=== PATIENT | female | born 1980 | race Two or more races ===

== ENCOUNTER 2023-10-06 11:44 | Emergency (ER) | payer OTHER, SELFPAY ==
--- NOTE | ~2023-10-06 | XR_ITS ---
EXAMINATION: XR HIP, RIGHT WITH AP PELVIS CLINICAL INFORMATION: Status post right posterior hip/pelvic pain. As per patient increasing pain since a fall 2 years ago. COMPARISON: None available. TECHNIQUE: Two views of the right hip and AP view of the pelvis. FINDINGS: Normal osseous mineralization. Bilateral hip joints are intact. Hip joint spaces are well preserved. There is no evidence of acute fracture or dislocation. Sacroiliac joints are grossly unremarkable. Symphysis pubis is intact. A 1.3 cm length amorphous radiodensity is noted at the superior aspect of the right greater trochanter, likely representing soft tissue calcification/ossification. Projecting over the upper to mid sacrum, in the midline and to the left, note is made of a somewhat T-shaped density with appearance similar to that of intrauterine device, which is transversely oriented with the prongs facing towards the left. There are 2 calcified or sclerotic lesions noted in this region, with the larger one on the left measuring 5 cm in length and the smaller one on the right measuring 2.3 cm. XR/XR hip RT w PEL1V IMPRESSION: No evidence of acute fracture or dislocation in the pelvis and right hip. An amorphous radiodensity on the superior aspect of the right greater trochanter, likely representing soft tissue calcification/ossification. Differential possibilities may include calcific tendinitis/bursitis, heterotopic ossification, myositis ossificans etc. Note is made of spina bifida in the lower sacral region. Findings associated with sacrum/sacral region are of unclear etiology. Differential possibility includes sclerotic/developmental congenital sacral lesions, calcified uterine fibroids with T-shaped intrauterine device. There are no pertinent prior studies available for comparison. Recommend clinical correlation. Findings were discussed in detail with Dr. Hall on 10/06/2023 at 3:33 PM.
[2023-10-06 12:11] VITALS: BP 135/83; PULSE 74; RESP 16; TEMP 36.9; O2SAT 99; BMI 33.1
--- NOTE | 2023-10-06 12:11 | ED.GENADULT ---
HPI - General Adult General Chief complaint: General Medical Stated complaint: l side pain Time Seen by Provider: 10/06/23 13:27 Source: patient Mode of arrival: ambulatory Limitations: no limitations History of Present Illness HPI narrative: 42-year-old female with no significant past medical history who presents emergency department with complaints of right buttock /lateral hip pain for the past several days. She states that while ambulating the pain radiates from the buttock into the foot. She denies any known trauma or overuse injury, erythema, ecchymosis, swelling, or history of IV drug use. She states she has been using [id number] patches and prescription strength ibuprofen with moderate relief in symptoms. She denies any fevers or chills reports that she is change in range of motion gait secondary to pain. She reports the pain is exacerbated with movements. She denies any urinary hesitancy, urinary or fecal incontinence, saddle anesthesia, new paresthesias pertinent positives and negatives discussed in HPI Related Data Previous Rx's Medication Instructions Recorded ibuprofen 600 mg tablet 600 mg PO Q6H PRN pain #30 tabs 10/06/23 lidocaine 4 % topical patch 1 patch topical DAILY PRN pain #15 10/06/23 ea Allergies Allergy/AdvReac Type Severity Reaction Status Date / Time No Known Allergies Allergy Verified 10/06/23 12:10 Review of Systems Review of Systems: Yes all other systems are reviewed and are negative [facility] Social History Social History Advance Directives: No Advance Directives Information Provided: No Physical Exam ED Vital Signs: Vital Signs - 24 hr 10/06/23 12:11 10/06/23 15:55 10/06/23 16:13 Temperature 98.4 F 98.3 F 98.3 F Pulse Rate 74 76 76 Respiratory Rate 16 18 18 Blood Pressure 135/83 134/76 134/76 Pulse Oximetry 99 99 99 Oxygen Delivery Method Room Air Room Air Room Air BMI result Body Mass Index 33.1 Nursing notes and vital signs reviewed. GENERAL APPEARANCE: A&0 x 4, generally well appearing, no acute distress HENMT: Normal to inspection, atraumatic, face symmetrical. Normal external ears, nose, and oropharynx clear. EYE: PERRLA, EOM intact, structures appear normal NECK: Supple without stiffness or restricted ROM. HEART: Normal rate and regular rhythm, normal S1/S2, no M/R/G LUNGS: LS CTA, moving air well. Able to speak in complete sentences. No crackles, wheezes, or rhonchi auscultated BACK: No CVAT, no obvious deformity EXTREMITIES: Moving all extremities without difficulty. Normal capillary refill. Tenderness to palpation right lateral hip /buttock NEUROLOGICAL: Alert and oriented, moving all 4 extremities with equal strength. CN not formally tested but appearing grossly intact. Observed to ambulate with normal gait. Cognition normal SKIN: Warm and dry without any lesions, rash, or visible sores Course Course Course Narrative: This is an RME: Additional HPI, ROS, PE not included below will be deferred to primary provider. 42 yo f presents w/ R sided glute pain into rle no trauma, or blunt force to area. Patient reports 6/10 pain, walking initially makes it better but with time makes it worse. Exacerbated by certain movements. Denies numbness, tingling, saddle anesthesias, urinary/bowel incontinence or retention. Ambulatory into triage Medications Administered Discontinued Medications Generic Name Dose Route Start Last Admin Trade Name Freq PRN Reason Stop Dose Admin Ketorolac Tromethamine 15 mg 10/06/23 13:55 10/06/23 14:15 Ketorolac Tromethamine 15 Mg/Ml Vial IM 10/06/23 13:56 15 mg ONCE ONE Administration Lidocaine 1 patch 10/06/23 13:55 10/06/23 14:14 Lidocaine 4 % Patch Adh..Patch TRANSDERMA 10/06/23 13:56 1 patch ONCE ONE Administration Protocol Medical Decision Making Medical Decision Making MDM Narrative: Old records reviewed for previous imaging, lab studies, ECGs, and notes. Patient was assessed the emergency department with no acute distress or toxicity noted. lidocaine patch applied and IM Toradol given for management of pain. X-ray right hip/ pelvis completed showing no evidence of acute injury. radiologist remarks on concerns for chronic spinal changes and calcifications consistent with potential bursitis. Patient is safe for discharge at this time with plan for [id number] Tylenol and/or NSAID such as ibuprofen or naproxen for fever/discomfort with dosing as per packaging. HPI, PE, diagnostics, and plan discussed with patient and family with no unanswered questions at this time. Strict return precautions given to return to the emergency department with new, worsening, or concerning emergent symptoms. Recommended to follow-up with there primary care provider in 24-48 hours for further treatment and management. Differential Diagnosis Differential Diagnoses: The differential diagnosis associated with the presentation includes but not limited to strain, sprain, fracture, dislocation, Bursitis, tendonitis, radiculopathy, stenosis, contusion, abscess, cellulitis, sepsis, malignancy Lab Data Labs: Lab Results 10/06/23 Range/Units 13:48 Urine Color Yellow Urine Appearance Clear Urine pH 8.0 (5.0-9.0) Ur Specific [place] 1.010 (1.005-1.025) Urine Protein Negative (Neg-Trace) mg/dL Urine Glucose (UA) Negative (Negative) mg/dL Urine Ketones Trace (Negative) mg/dL Urine Blood Negative (Negative) Urine Nitrite Negative (Negative) Ur Leukocyte Esterase Negative (Negative) Urine Test NEGATIVE (NEGATIVE) Discharge Plan Discharge Clinical Impression: Bursitis of hip, right Patient Disposition: Home, Self-Care Instructions: Hip Bursitis (ED), Arthralgia (ED) Prescriptions: New lidocaine 4 % adhesive patch,medicated 1 patch topical DAILY PRN (Reason: pain) Qty: 15 0RF ibuprofen 600 mg tablet 600 mg PO Q6H PRN (Reason: pain) Qty: 30 0RF [place]: [facility] [place] [facility] [place] [facility] [place] [facility] [place]Provider Group] [facility] [place] [facility] [Provider Group] [facility] [place] [facility] [Provider Group] [facility] [place] Orthopedic Surgeons [Provider Group] Stand Alone Forms: Work/School Release Interventions: ED Discharge Assessment Last Done: 10/06/23 16:13 Discharge Date/Time: 10/06/23 16:16 Print Language: Yemeni
--- NOTE | 2023-10-06 13:56 | ED_ITS ---
<Statement entered by Madai Wall NP - 10/06/23 18:59> duplicate HPI - General Adult General Chief complaint: General Medical Stated complaint: l side pain Time Seen by Provider: 10/06/23 13:27 Related Data Previous Rx's Medication Instructions Recorded ibuprofen 600 mg tablet 600 mg PO Q6H PRN pain #30 tabs 10/06/23 lidocaine 4 % topical patch 1 patch topical DAILY PRN pain #15 10/06/23 ea Allergies Allergy/AdvReac Type Severity Reaction Status Date / Time No Known Allergies Allergy Verified 10/06/23 12:10 [facility] Social History Social History Advance Directives: No Advance Directives Information Provided: No Physical Exam ED Vital Signs: Vital Signs - 24 hr 10/06/23 12:11 10/06/23 15:55 10/06/23 16:13 Temperature 98.4 F 98.3 F 98.3 F Pulse Rate 74 76 76 Respiratory Rate 16 18 18 Blood Pressure 135/83 134/76 134/76 Pulse Oximetry 99 99 99 Oxygen Delivery Method Room Air Room Air Room Air BMI result Body Mass Index 33.1 Medications Administered Discontinued Medications Generic Name Dose Route Start Last Admin Trade Name Freq PRN Reason Stop Dose Admin Ketorolac Tromethamine 15 mg 10/06/23 13:55 10/06/23 14:15 Ketorolac Tromethamine 15 Mg/Ml Vial IM 10/06/23 13:56 15 mg ONCE ONE Administration Lidocaine 1 patch 10/06/23 13:55 10/06/23 14:14 Lidocaine 4 % Patch Adh..Patch TRANSDERMA 10/06/23 13:56 1 patch ONCE ONE Administration Protocol Medical Decision Making Lab Data Labs: Lab Results 10/06/23 Range/Units 13:48 Urine Color Yellow Urine Appearance Clear Urine pH 8.0 (5.0-9.0) Ur Specific [place] 1.010 (1.005-1.025) Urine Protein Negative (Neg-Trace) mg/dL Urine Glucose (UA) Negative (Negative) mg/dL Urine Ketones Trace (Negative) mg/dL Urine Blood Negative (Negative) Urine Nitrite Negative (Negative) Ur Leukocyte Esterase Negative (Negative) Urine Test NEGATIVE (NEGATIVE) Discharge Plan Discharge Clinical Impression: Bursitis of hip, right Patient Disposition: Home, Self-Care Instructions: Hip Bursitis (ED), Arthralgia (ED) Prescriptions: New lidocaine 4 % adhesive patch,medicated 1 patch topical DAILY PRN (Reason: pain) Qty: 15 0RF ibuprofen 600 mg tablet 600 mg PO Q6H PRN (Reason: pain) Qty: 30 0RF Ref[place]: [facility] [place]] [facility] [place] [facility] [Provider Group] [facility] [place] [facility] [Provider Group] [facility] [place] [facility] [Provider Group] [facility] [place] Orthopedic Surgeons [Provider Group] Stand Alone Forms: Work/School Release Interventions: ED Discharge Assessment Last Done: 10/06/23 16:13 Discharge Date/Time: 10/06/23 16:16 Print Language: Andorran
[2023-10-06 13:59] LABS: Appearance Urine Clear; Color Urine Yellow; Glucose Urine UA Negative (Negative); Leukocyte Esterase Urine Negative (Negative); Nitrite Urine Negative (Negative); Urine Blood Negative (Negative); Urine Ketones Trace mg/dL (Negative); Urine Protein Negative (Neg-Trace)
[2023-10-06 14:01] LABS: UPreg QC Valid YES; Urine Pregnancy NEGATIVE (NEGATIVE)
[2023-10-06] MEDS: Lidocaine 4 % Patch ADH..PATCH 1 PATCH TRANSDERMA (14:14)
[2023-10-06] MEDS: Ketorolac Tromethamine 15 MG/ML VIAL IM (14:15)
[2023-10-06 15:55] VITALS: BP 134/76; PULSE 76; RESP 18; TEMP 36.8; O2SAT 99
[2023-10-06 16:13] VITALS: BP 134/76; PULSE 76; RESP 18; TEMP 36.8; O2SAT 99
== END 2023-10-06 16:16 | disposition home or self-care (01) ==
PROVIDERS: Physician Assistant; Emergency Provider Student in an Organized Health Care Education/Training Program
DX: M70.71 Other bursitis of hip, right hip (principal)
CPT/HCPCS: 73502; 81003; 81025; 96372; 99284; J1885

== ENCOUNTER 2025-04-26 13:58 | Emergency (ER) | payer OTHER, SELFPAY ==
--- NOTE | 2025-04-26 14:31 | ED_ITS ---
HPI - General Adult General Chief complaint: General Medical Stated complaint: nausea, dizzy Time Seen by Provider: 04/26/25 20:07 Source: patient Mode of arrival: ambulatory Limitations: no limitations History of Present Illness ED Provider: Robbie TELLEZ HPI narrative: Patient is a 44-year-old female presenting to the ED for evaluation of nausea and dizziness which began around noon today. The patient reports she was seen at [facility] 3 weeks ago for low blood sugar at a gas station, patient drank orange juice prior to EMS arrival and had a normal blood sugar for EMS and at [facility], patient was discharged from the ED. The patient does not take any insulin or other medications for diabetes. The patient reports today she developed vague nausea and dizziness described as lightheadedness without associated headache, chest pain, shortness of breath, vomiting, diarrhea, abdominal pain, focal neurological deficit, vision change, fever/chills, or other acute somatic complaint. The patient denies any recent sick contacts or recent trauma. Related Data Previous Rx's ?Medication ?Instructions ?Recorded ibuprofen 600 mg tablet 600 mg PO Q6H PRN pain #30 t abs 10/06/23 lidocaine 4 % topical patch 1 patch topical DAILY PRN pain #15 10/06/23 ea Allergies Allergy/AdvReac Type Severity Reaction Status Date / Time No Known Allergies Allergy Verified 04/26/25 14:34 Review of Systems 2 Review of Systems: Yes all other systems are reviewed and are negative PMFSH Social History Social History Advance Directives: No Advance Directives Information Provided: No Do you have a plan to hurt others: No Plan Physical Exam ED Vital Signs: Vital Signs - 24 hr 04/26/25 14:32 04/26/25 16:31 Temperature 97.8 F 98.8 F Pulse Rate 82 68 Respiratory Rate 16 16 Blood Pressure 192/79 H 134/74 Pulse Oximetry 98 99 Oxygen Delivery Method Room Air Room Air BMI result Body Mass Index 32.7 CONSTITUTIONAL: The patient appears non-toxic, well nourished and in no acute distress. Vital signs as documented. HEAD: Atraumatic, normocephalic. EYES: EOMs intact, pupils equal, conjunctiva clear, no exudate. ENT: Nares patent, no discharge. Airway patent, no audible stridor, visible mucosa is pink and moist without noted lesions. NECK: Trachea is midline, no obvious masses or gross abnormalities. CHEST: Symmetric movement, normal appearance. LUNGS: LS present and CTAB, no w/r/r. Non-labored work of breathing. CARDIAC: Regular Rhythm, S1/S2 appreciated, no murmurs, rubs or gallops. ABDOMEN: Abdomen soft and non-tender x4 quadrants, no palpable masses or organomegaly. : Deferred. EXTREMITIES: Normal tone, moves all extremities spontaneously without reported pain. No obvious acute injury or deformity noted. NEURO: Alert and oriented x3, CN II-XII intact. Cerebellar Functioning intact. No sensory or motor deficits. Strength 5/5 x4. Speech clear and appropriate. PSYCH: normal affect, appropriate eye contact, fluid speech, with appropriate response to questioning. No reported suicidality or homicidality. SKIN: Warm, dry, color appropriate, normal turgor. No rashes noted. Course Course Course Narrative: This is a rapid medical exam performed by Stevan Castro NP: Additional HPI, ROS, PE not included below will be deferred to primary provider. Patient is a 44y/o F presenting to the ED with complaint of nausea, dizziness since noon today. States 3 weeks ago, was hospitalized for hypoglycemia. Plan: poc glucose, labs, viral swabs Medical Decision Making Medical Decision Making MDM Narrative: 8:22 PM 04/26/2025 (Geovanny TELLEZ): Patient is a 44-year-old female presenting to the ED for evaluation of nausea and dizziness which began around noon today. The patient reports she was seen at [facility] 3 weeks ago for low blood sugar at a gas station, patient drank orange juice prior to EMS arrival and had a normal blood sugar for EMS and at [facility], patient was discharged from the ED. The patient does not take any insulin or other medications for diabetes. The patient reports today she developed vague nausea and dizziness described as lightheadedness without associated headache, chest pain, shortness of breath, vomiting, diarrhea, abdominal pain, focal neurological deficit, vision change, fever/chills, or other acute somatic complaint. The patient denies any recent sick contacts or recent trauma. The patient in the ED appears in no acute distress, is sitting comfortably on the exam stretcher looking down at her phone watching a movie with no evidence of dizziness. The patient is able to make rapid head movements and positional changes without dizziness, neurologic exam is intact. Patient reports symptoms have entirely resolved while in the ED. Laboratory evaluation shows no leukocytosis, significant anemia, electrolyte abnormality, MARCELINO, or hypoglycemia. Blood sugar is 98. LFTs normal. EKG is nonischemic. Swabs are negative for COVID and influenza. The patient is not . At this time there is no indication for CT imaging and patient is appropriate for discharge home with outpatient follow up. The patient reports she has a scheduled appointment with her PCP next Sunday05/04/2025. Patient educated on reasons to return to the ED. Admission/Observation Consideration of admission/observation: Escalation of care including admission/observation considered Lab Data MDM Lab Attestation statement: I reviewed the patient's lab results. 04/26/25 15:01 04/26/25 15:01 Labs: Lab Results 04/26/25 04/26/25 Range/Units 15:01 20:15 WBC 6.0 (4.8-10.8) X10*3/uL RBC 3.60 L (4.20-5.50) X10*6/uL Hgb 11.9 L (12.0-16.0) g/dl Hct 34.8 L (37.0-47.0) % MCV 96.7 (80.0-98.0) fL MCH 33.1 H (27.0-33.0) pg MCHC 34.2 (31.0-35.0) g/dl RDW 12.0 (11.0-16.0) % Plt Count 281 (160-400) X10*3/uL MPV 10.6 (9.4-12.3) fL Immature Gran % (Auto) 0.2 (0.0-0.4) % Neut % (Auto) 66.5 (45-73) % Lymph % (Auto) 27.5 (20-40) % Ramsey % (Auto) 5.1 (2-11) % Eos % (Auto) 0.5 (0-4) % Baso % (Auto) 0.2 (0-2) % Lymph # (Auto) 1.7 (1.2-4.9) X10*3/uL Ramsey # (Auto) 0.3 (0.1-1.2) X10*3/uL Eos # (Auto) 0.0 (0.0-0.4) X10*3/uL Baso # (Auto) 0.0 (0.0-0.2) X10*3/uL Abs Immat Gran (auto) 0.01 (0.00-0.03) X10*3/uL Absolute Neuts (auto) 4.0 (2.0-8.3) x10*3/uL Absolute Nucleated RBC 0.000 (0.0-0.012) X10*3/uL Nucleated RBC % (auto) 0.0 (0.0-0.2) /100WBC Sodium 143 (135-145) mmol/L Potassium 3.3 (3.3-5.1) mmol/L Chloride 109 H (96-108) mmol/L Carbon Dioxide 27 (22-29) mmol/L Anion Gap 10 L (12-20) BUN 8 L (9-16) mg/dL Creatinine 0.69 (0.5-1.4) mg/dL Estim Creat Clear Calc 104.7 Estimated GFR > 60 POC Glucose 99 (60-115) mg/dL Random Glucose 98 (60-115) mg/dL Calcium 9.2 (8.4-10.2) mg/dL Magnesium 2.0 (1.6-2.6) mg/dL Total Bilirubin 0.3 (0.0-1.0) mg/dL AST 23 (5-31) U/L ALT 16 (0-31) U/L Alkaline Phosphatase 45 (39-117) U/L Total Protein 7.2 (6.5-8.0) g/dL Albumin 4.3 (3.5-5.0) g/dL Beta HCG, Quant < 2 mIU/mL COVID-19 (RAJ) Negative (Negative) COVID-19 Clin Com See Note Influenza Type A (DAMIAN) Negative (Negative) Influenza Type B (DAMIAN) Negative (Negative) Influenza A & B Note See Note Independent Interpretation I performed an independent interpretation of an: EKG (EKG shows sinus rhythm with a rate of 71, no evidence of acute ischemia, no ST elevation, no ectopy. QTC 430, no previous EKGs available for comparison.) Discharge Plan Discharge Clinical Impression: Dizziness Patient Disposition: Home, Self-Care Instructions: Dizziness (ED) Additional Instructions: Thank you for choosing [facility]'s Emergency Department for your care today. Thankfully your laboratory evaluation, EKG, blood sugar, viral swabs, and exam today are all reassuring. At this time there is no indication for admission to the hospital or continued ED observation, and it is safe to discharge you home. Your blood sugar today was normal, your viral testing was negative for COVID and flu, and the remainder of your laboratory workup was all normal. The exact cause of your symptoms is not entirely clear, however seeing as your symptoms have resolved and there does not appear to be any dangerous cause of your symptoms, we recommend you follow up with the primary care provider at your scheduled appointment next Sunday. Please stay well hydrated and get plenty of rest. Please follow up with your primary care physician for re-evaluation, additional management of your symptoms, and continued preventative care. If you do not have a primary care physician, please call the [facility] at [phone] to establish a new primary care physician. While waiting to establish your new primary care physician, you can call our Walk-in [facility] at [phone] for non-emergency needs. Please return to the emergency department if you develop a severe or sudden change in your symptoms, a fever over 100.4 that does not improve with Tylenol or Ibuprofen, recurrent vomiting, or any other new or worsening symptoms or concerns. Prescriptions: No Action lidocaine 4 % adhesive patch,medicated 1 patch topical DAILY PRN (Reason: pain) Qty: 15 0RF ibuprofen 600 mg tablet 600 mg PO Q6H PRN (Reason: pain) Qty: 30 0RF Print Language: Citizen [place]
[2025-04-26 14:32] VITALS: BP 192/79; PULSE 82; RESP 16; TEMP 36.6; O2SAT 98; BMI 32.7
--- NOTE | 2025-04-26 14:33 | ECG_ITS ---
Test Reason : PALPITATIONS Blood Pressure : */* mmHG Vent. Rate : 71 BPM Atrial Rate : 71 BPM P-R Int : 140 ms QRS Dur : 86 ms QT Int : 396 ms P-R-T Axes : 21 -9 14 degrees QTcB Int : 430 ms Normal sinus rhythm Normal ECG No previous ECGs available Referred By: Nikki Castro Electronically Signed By: JAKOB EDMONDS MD
[2025-04-26 15:08] LABS: MANUAL DIFF FLAG NO
[2025-04-26 15:12] LABS: Hematocrit 34.8 % (37.0-47.0); Hemoglobin 11.9 g/dl (12.0-16.0); Imm Gran Abs Auto 0.01 X10*3/uL (0.00-0.03); Imm Gran Pct Auto 0.2 % (0.0-0.4); Lymphocytes Absolute Auto 1.7 X10*3/uL (1.2-4.9); Mean Corpuscular HGB Conc 34.2 g/dl (31.0-35.0); Mean Corpuscular Hemoglobin 33.1 pg (27.0-33.0); Mean Corpuscular Volume 96.7 fL (80.0-98.0); NRBC Abs Auto 0.000 X10*3/uL (0.0-0.012); NRBC Pct Auto 0.0 /100WBC (0.0-0.2); Platelet Count 281 X10*3/uL (160-400); Red Blood Count 3.60 X10*6/uL (4.20-5.50); White Blood Count 6.0 X10*3/uL (4.8-10.8)
[2025-04-26 15:24] LABS: COVID-19 Test Negative (Negative); IDNOW Serial# 08D9AD1C
[2025-04-26 15:38] LABS: IDNOW Serial# 58CA691E; Influenza B2 Negative (Negative)
[2025-04-26 16:05] LABS: Alanine Aminotransferase 16 U/L (0-31); Albumin Level 4.3 g/dL (3.5-5.0); Anion Gap 10 (12-20); Aspartate Amino Transferase 23 U/L (5-31); Blood Urea Nitrogen 8 mg/dL (9-16); Calcium 9.2 mg/dL (8.4-10.2); Carbon Dioxide 27 mmol/L (22-29); Chloride 109 mmol/L (96-108); Creatinine Clr Calc Pharmacy 104.7; Estimated Glomerular Filt Rate > 60; Magnesium 2.0 mg/dL (1.6-2.6); Potassium 3.3 mmol/L (3.3-5.1); Sodium 143 mmol/L (135-145); Total Protein 7.2 g/dL (6.5-8.0)
[2025-04-26 16:31] VITALS: BP 134/74; PULSE 68; RESP 16; TEMP 37.1; O2SAT 99
[2025-04-26 16:37] LABS: Alkaline Phosphatase 45 U/L (39-117)
--- OUTSIDE RECORDS SUMMARY | 2025-04-26 19:21 | XMS_ITS | Clinical Summary ---
Author Organization [facility] Address [address] [place] [address] Phone Care Team Providers Care Computer Lab Para Professional Name Role Phone Physician, Pcp Unknown Primary Care Provider Sameera vailable Allergies No known active allergies Encounters Date Type Department Care Team Description 04/12/2025 4:38 PM EDT - 04/12/2025 5:41 PM EDT Emergency [facility] Emergency [address] [place] [address] Gagan Rawls MD Other fatigue (Primary Dx) Discharge Disposition: Home or Self Care from Last 3 Months Social History Tobacco Use Types Packs/Day Years Used Date Smoking Tobacco: Never Assessed Comments Unknown Sex and Gender Information Value Date Recorded Sex Assigned at Not on file Legal Sex Female 4:35 PM EDT Gender Identity Not on file Sexual Orientation Not on file Last Filed Vital Signs Vital Sign Reading Time Taken Comments Blood Pressure 134/80 04/12/2025 4:56 PM EDT Pulse 91 04/12/2025 4:56 PM EDT Temperature 36.8 C (98.2 F) 04/12/2025 4:56 PM EDT Respiratory Rate 16 04/12/2025 4:56 PM EDT Oxygen Saturation 99% 04/12/2025 4:56 PM EDT Inhaled Oxygen Concentration - - Weight 79.4 kg (175 lb) 04/12/2025 4:56 PM EDT Height 157.5 cm (5' 2 ) 04/12/2025 4:56 PM EDT Body Mass Index 32.01 04/12/2025 4:56 PM EDT Plan of Treatment Health Maintenance Due Date Last Done Comments Breast Cancer Screening 1982 DTaP,Tdap,and Td Vaccines (1 - Tdap) 2001 Hepatitis B Vaccines (1 of 3 - 19+ 3-dose series) 2001 Cervical Cancer Screening: P ap Smear 12/10/2003 HPV Vaccines (1 - 3-dose SCD M series) 2009 Depression Screening 07/09/2024 COVID-19 Vaccine (1 - 2023-2 5 season) 2025 Influenza Vaccine (#1) 2025 HIV Screening 04/12/2025 Hepatitis C Screening 04/12/2025 Social Influencers of Health Screening 04/12/2025 RSV Immunization Adult Patie nts (1 - 1-dose 75+ series) 2057 HIB Vaccines Aged Out No longer eligi ble based on patient's age to complete this topic Hepatitis A Vaccines Aged Out No long er eligible based on patient's age to complete this topic IPV Vaccines Aged Out No longer eligi ble based on patient's age to complete this topic MMR Vaccines Aged Out No longer eligi ble based on patient's age to complete this topic Meningococcal ACWY Vaccine Aged Out N o longer eligible based on patient's age to complete this topic Meningococcal B Vaccine Aged Out No l onger eligible based on patient's age to complete this topic Pneumococcal Vaccine: Pediat rics (0 to 5 Years) and At-Risk Patients (6 to 49 Years) Aged Out No longer eligible b ased on patient's age to complete this topic RSV Immunization Patients Un stephen 20 months Aged Out No longer eligible b ased on patient's age to complete this topic Varicella Vaccines Aged Out No longer eligible based on patient's age to complete this topic Procedures Procedure Name Priority Date/Time Associated Diagnosis Comments POCT GLUCOSE BLOOD Routine 04/12/2025 4: 53 PM EDT from Last 3 Months Results * (ABNORMAL) POCT Glucose, blood (04/12/2025 4:53 PM EDT) Glucose POCT 133(H) 70 - 100 mg/dL 04/12/2025 4:55 PM EDT [facility] Blood Capillary blood specimen / Unknown 04/12/2025 4:53 PM EDT 04/12/2025 4:56 PM EDT us Gagan Ralws MD LAB POINT OF CARE TE ST DOCKED DEVICE UNSOLICITED RESULTS Final Result Performing Organization Address City/State/[facility] Co de Phone Number [facility] [address] [place] [address], [place] [phone] from Last 3 Months Insurance [employer] Care Teams Computer Lab Para Professional Relationship Specialty Start Date End Date Physician, Pcp Unknown PCP - General 04/12/25
[2025-04-26 20:17] VITALS: BP 135/84; PULSE 68; RESP 18; TEMP 36.7; O2SAT 98
[2025-04-26 20:18] LABS: Glucose, Whole Blood 99 mg/dL (60-115)
--- NOTE | 2025-04-26 20:22 | PC.NURSE ---
pt a&ox4, respirations even and unlabored. pt reports x3 months of epigastric burning, dizziness, nausea and vomiting. pt reports she has also experienced low sugars. vss. GEOFF Amaya at bedside at this time.
[2025-04-26 20:25] VITALS: BP 135/84; PULSE 68; RESP 18; TEMP 36.7; O2SAT 98
== END 2025-04-26 20:27 | disposition home or self-care (01) ==
PROVIDERS: Registered Nurse Emergency; Emergency Provider Emergency Medicine
DX: R42 Dizziness and giddiness (principal); R11.0 Nausea
CPT/HCPCS: 80053; 82947; 83735; 84702; 85025; 87502; 87635; 93005; 99283; 99284

== ENCOUNTER → 2025-04-26 14:33 | Outpatient (BNV) | payer OTHER, SELFPAY | PROVIDERS: Emergency Provider Emergency Medicine; Visit Provider Internal Medicine Cardiovascular Disease | DX: R00.2 Palpitations (principal) | CPT/HCPCS: 93010 ==